=== PATIENT | male | born 1940 | race Caucasian/White ===

== ENCOUNTER 2018-10-25 16:36 | Emergency (ER) | payer MEDICARE ==
--- NOTE | 2018-10-25 17:05 | CT ---
CT head noncontrast HISTORY: Head injury. FINDINGS: There is no evidence of acute intracranial hemorrhage or infarct. 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 Mild diffuse atrophy. There is no mass effect or shift of. Visualized paranasal sinuses remain well aerated. IMPRESSION: No acute intracranial abnormalities are demonstrated.
--- NOTE | 2018-10-25 17:15 | CT ---
EXAM: CT cervical spine PROVIDED CLINICAL HISTORY: Trauma. Patient fell and hit head. Unconscious. TECHNIQUE: Contiguous axial CT images are obtained through the cervical spine from the skull base to the T1-2 le marie. Sagittal and coronal reformatted images are provided. COMPARISON: None FINDINGS: There is trace anterolisthesis of C3 on C4 and C4 on C5 likely attributable to facet degenerative jeny nges at these level. There is straightening of the normal cervical lordotic curvature. The vertebral body heights are within normal limits, and no fracture is seen. The interspinous distances are within normal limits. Multilevel degenerative changes are seen in the cervical spine. There is severe left-sided neural for aminal narrowing at C3-4 level related to uncinate process hypertrophy and severe facet hypertrophic changes. Mild degrees of neural foraminal narrowing are seen at additional levels due to mild bony encroachment. There is no significant bony encroachment of the central spinal canal. There is rotation at the C1-2 level which is likely attributable to patient's head being rotated. No prevertebral soft tissue swelling apparent. Limited visualized lung apices demonstrate a calcified granuloma at the left lung apex but are otherw ise clear. There is a subcentimeter hypodense nodule right lobe of the thyroid gland. Nonemergent thyroid ultras ound may be helpful for further evaluation. Vascular calcifications are seen in the carotid arteries. IMPRESSION: 1. Multilevel degenerative changes in the cervical spine with trace anterolisthesis of C3 on C4 and C 4 on C5 likely attributable to the facet hypertrophic changes at these levels. 2. No acute fracture visualized. 3. Straightening of normal cervical lordotic curvature. 4. Subcentimeter hypodense nodule right lobe of thyroid gland. Nonemergent thyroid ultrasound is tamiko vazquez.
[2018-10-25] MEDS ORDERED: Bacitracin 1 PK ONE (17:33)
== END 2018-10-25 17:53 | disposition home or self-care (01) ==
LOC: ERS 16:36
DX: S06.0X9A Concussion with loss of consciousness of unspecified duration, initial encounter (principal); S16.1XXA Strain of muscle, fascia and tendon at neck level, initial encounter; S50.312A Abrasion of left elbow, initial encounter; E04.1 Nontoxic single thyroid nodule; E11.9 Type 2 diabetes mellitus without complications; I10 Essential (primary) hypertension; E78.5 Hyperlipidemia, unspecified; W10.9XXA Fall (on) (from) unspecified stairs and steps, initial encounter
CPT/HCPCS: 70450; 72125